=== PATIENT | male | born 1955 | race Two or more races ===

== ENCOUNTER 2017-12-14 14:20 | Emergency (ER) | payer SELFPAY ==
--- NOTE | 2017-12-14 14:37 | EDM.PDOC ---
ED HPI GENERAL MEDICAL PROBLEM - General Chief Complaint: Abdominal Pain Stated Complaint: ABDOMINAL PAIN FROM HERNIA Time Seen by Provider: 12/14/17 14:23 Source of Information: Reports: Patient History Limitations: Reports: No Limitations - History of Present Illness INITIAL COMMENTS - FREE TEXT/NARRATIVE: HISTORY AND PHYSICAL: History of present illness: Patient is a 62-year-old male who presents to the emergency room today with complaints of abdominal pain which he contributes to a hernia. He states over the past 3 years he has noted an umbilical hernia which she normally can reduce himself. Over the past 1-2 days he has had abdominal pain to the umbilicus and is not able to reduce the hernia himself. He states that he has not seen a medical provider for this issue, nor has had any imaging done of this. He denies any fever, chills, chest pain, shortness of breath or cough. Denies any nausea, vomiting, diarrhea, constipation or dysuria. Denies any testicular swelling, erythema, or pain. *Patient is Tristanian speaking. I did offer [employer] translation services, he declines. He has family at bedside, which he prefers to translate for him. Review of systems: As per history of present illness and below otherwise all systems reviewed and negative. Past medical history: As per history of present illness and as reviewed below otherwise noncontributory. Surgical history: As per history of present illness and as reviewed below otherwise noncontributory. Social history: No reported history of drug or alcohol abuse. Family history: As per history of present illness and as reviewed below otherwise noncontributory. Physical exam: General: Well-developed and well-nourished 62-year-old male. Alert and oriented. Nontoxic appearing and in no acute distress. HEENT: Atraumatic, normocephalic, pupils equal and reactive bilaterally, negative for conjunctival pallor or scleral icterus, mucous membranes moist, throat clear, neck supple, nontender, trachea midline. No drooling or trismus noted. No meningeal signs Lungs: Clear to auscultation, breath sounds equal bilaterally, chest nontender. Heart: S1S2, regular rate and rhythm without overt murmur Abdomen: Soft, nondistended, 2 cm umbilical hernia noted. Negative for masses or hepatosplenomegaly. Negative for costovertebral tenderness. Pelvis: Stable nontender. Genitourinary: Deferred. Rectal: Deferred. Skin: Intact, warm, dry. No lesions or rashes noted. Extremities: Atraumatic, negative for cords or calf pain. Neurovascular unremarkable. Neuro: Awake, alert, oriented. Cranial nerves II through XII unremarkable. Cerebellum unremarkable. Motor and sensory unremarkable throughout. Exam nonfocal. Notes: Unable to reduce the umbilical hernia. The skin is pink and normal skin temperature. Area is tender with deep palpation. Denies any changes to bowel habits. He is agreeable to labs and CT at this time. Patient's CT shows a fat-containing umbilical hernia with stranding in the herniated fat, suggestive of regional inflammation and vascular congestion which could represent partial incarceration. Large hiatal hernia noted. Patient was able to reduce the hernia himself. His abdomen is nontender. Skin is pink, warm, dry. I did consult with Dr. Arita this patient. She requests that the patient follow up with her later this week or early next week for further evaluation. Care measures were reviewed and discussed. Signs and symptoms that would prompt him to return to the emergency room were reviewed and discussed. Patient and family member voice understanding and are agreeable to plan of care. Denies any further questions or concerns at this time. Diagnostics: CBC, CMP, CT abdomen and pelvis Therapeutics: Toradol Prescription: None Impression: Umbilical hernia, reducible Plan: 1. Avoid any strenuous activity which would cause the hernia to protrude. If you are unable to reduce the hernia yourself please return to the emergency room. 2. Please follow-up with the general surgeon next week. Your hernia does need to be repaired. 3. Tylenol and/or ibuprofen as needed for pain management. 4. Return to the ED as needed and as discussed. Definitive disposition and diagnosis as appropriate pending reevaluation and review of above. Onset: Today Duration: Day(s): Location: Reports: Abdomen hernia on umbilicas Pain Score (Numeric/FACES): 8 - Related Data Allergies Allergy/AdvReac Type Severity Reaction Status Date / Time No Known Allergies Allergy Verified 12/14/17 14:51 Home Meds: Home Meds . [No Known Home Meds] 12/14/17 [History] ED ROS GENERAL - Review of Systems Review Of Systems: ROS reveals no pertinent complaints other than HPI. ED EXAM, GI/ABD - Physical Exam Exam: See Below (See dictation) Course - Vital Signs Last Recorded V/S: Last Vital Signs Temp 97.9 F 12/14/17 14:52 Pulse 92 12/14/17 14:52 Resp 20 12/14/17 14:52 BP 118/73 12/14/17 14:52 Pulse Ox 94 L 12/14/17 14:52 - Orders/Labs/Meds Orders: Active Orders 24 hr Category Date Time Status Abdomen Pelvis w Cont [CT] Stat Exams 12/14/17 14:44 Taken Labs: Laboratory Tests 12/14/17 12/14/17 Range/Units 14:51 14:51 WBC 4.93 (4.0-11.0) K/uL RBC 4.71 (4.50-5.90) M/uL Hgb 10.8 L (13.0-17.0) g/dL Hct 34.0 L (38.0-50.0) % MCV 72.2 L (80.0-98.0) fL MCH 22.9 L (27.0-32.0) pg MCHC 31.8 (31.0-37.0) g/dL RDW Std Deviation 41.4 (28.0-62.0) fl RDW Coeff of Annie 16 H (11.0-15.0) % Plt Count 228 (150-400) K/uL MPV 10.60 (7.40-12.00) fL Neut % (Auto) 64.8 (48.0-80.0) % Lymph % (Auto) 23.5 (16.0-40.0) % Roane % (Auto) 9.9 (0.0-15.0) % Eos % (Auto) 1.6 (0.0-7.0) % Baso % (Auto) 0.2 (0.0-1.5) % Neut # (Auto) 3.2 (1.4-5.7) K/uL Lymph # (Auto) 1.2 (0.6-2.4) K/uL Roane # (Auto) 0.5 (0.0-0.8) K/uL Eos # (Auto) 0.1 (0.0-0.7) K/uL Baso # (Auto) 0.0 (0.0-0.1) K/uL Nucleated RBC % 0.0 /100WBC Nucleated RBCs # 0 K/uL Sodium 145 (136-148) mmol/L Potassium 3.4 L (3.5-5.1) mmol/L Chloride 110 H (98-107) mmol/L Carbon Dioxide 27.2 (21.0-32.0) mmol/L BUN 21 H (7.0-18.0) mg/dL Creatinine 1.0 (0.8-1.3) mg/dL Est Cr Clr Drug Dosing 65.67 mL/min Estimated GFR (MDRD) > 60.0 ml/min Glucose 126 H (74-106) mg/dL Calcium 8.5 (8.5-10.1) mg/dL Total Bilirubin 0.5 (0.2-1.0) mg/dL AST 20 (15-37) IU/L ALT 26 (14-63) IU/L Alkaline Phosphatase 58 (46-116) U/L Total Protein 6.8 (6.4-8.2) g/dL Albumin 3.3 L (3.4-5.0) g/dL Globulin 3.5 (2.0-3.5) g/dL Albumin/Globulin Ratio 0.9 L (1.3-2.8) Meds: Medications Discontinued Medications Generic Name Dose Route Start Last Admin Trade Name Freq PRN Reason Stop Dose Admin Sodium Chloride 1,000 mls @ 999 mls/hr 12/14/17 15:52 12/14/17 15:56 Normal Saline IV 12/14/17 16:52 999 mls/hr NOW STA Administration Iopamidol 95 ml 12/14/17 16:17 12/14/17 16:40 Isovue Multipack-370 (76%) IVPUSH 12/14/17 16:18 95 ml ONETIME ONE Administration Ketorolac Tromethamine 30 mg 12/14/17 14:47 12/14/17 14:58 Toradol IVPUSH 12/14/17 14:48 30 mg ONETIME ONE Administration Departure - Departure Time of Disposition: 17:04 Disposition: Home, Self-Care 01 Clinical Impression: Umbilical hernia Qualifiers: Obstruction and gangrene presence: without obstruction or gangrene Qualified Code(s): K42.9 - Umbilical hernia without obstruction or gangrene - Discharge Information Instructions: Hernia, Adult, [id number] Referrals: PCP,None [Primary Care Provider] - Forms: ED Department Discharge Additional Instructions: The following information is given to patients seen in the emergency department who are being discharged to home. This information is to outline your options for follow-up care. We provide all patients seen in our emergency department with a follow-up referral. The need for follow-up, as well as the timing and circumstances, are variable depending upon the specifics of your emergency department visit. If you don't have a primary care physician on staff, we will provide you with a referral. We always advise you to contact your personal physician following an emergency department visit to inform them of the circumstance of the visit and for follow-up with them and/or the need for any referrals to a consulting specialist. The emergency department will also refer you to a specialist when appropriate. This referral assures that you have the opportunity for follow-up care with a specialist. All of these measure are taken in an effort to provide you with optimal care, which includes your follow-up. Under all circumstances we always encourage you to contact your private physician who remains a resource for coordinating your care. When calling for follow-up care, please make the office aware that this follow-up is from your recent emergency room visit. If for any reason you are refused follow-up, please contact the [facility] Emergency Department at and asked to speak to the emergency department charge nurse. [facility] Specialty Care - General Surgery (Dr Arita) Professional [address], [address] [place] [address] 1. Avoid any strenuous activity which would cause the hernia to protrude. If you are unable to reduce the hernia yourself please return to the emergency room. 2. Please follow-up with the general surgeon, Dr Arita, next week. Call to schedule this appointment. 3. Tylenol and/or ibuprofen as needed for pain management. 4. Return to the ED as needed and as discussed. - My Orders Last 24 Hours: My Active Orders 12/14/17 14:44 Abdomen Pelvis w Cont [CT] Stat - Assessment/Plan Last 24 Hours: My Active Orders 12/14/17 14:44 Abdomen Pelvis w Cont [CT] Stat
[2017-12-14] MEDS ORDERED: Ketorolac 30 MG/ML SDV IVPUSH ONE (14:47)
[2017-12-14 15:47] LABS: CHLORIDE,CL 110 mmol/L (98-107); SODIUM,NA 145 mmol/L (136-148)
[2017-12-14] MEDS ORDERED: Sodium Chloride 0.9% 1,000 ML IV STA (15:52)
[2017-12-14] MEDS ORDERED: Iopamidol 755 MG/ML 200 ML Multipack Bottle IVPUSH ONE (16:17)
--- NOTE | 2017-12-15 08:54 | CT ---
EXAM DATE: 12/14/17 PATIENT'S AGE: 62 Patient: GENARO BOONE Facility: [place], [place] Site . Site : 1955 Study: CT Abdomen/Pelvis [id number]/10/2018 4:40:20 PM Ordering Physician: Doctor Menezes Final Report: INDICATION: Abdominal pain. Umbilical hernia. TECHNIQUE: CT abdomen and pelvis acquired with IV contrast. COMPARISON: None available FINDINGS: Lower chest: A 4 millimeter right middle lobe nodule on image 5. A large hiatal hernia. Liver: Unremarkable. Spleen: Calcified splenic granulomas. Pancreas: Unremarkable. Gallbladder and bile ducts: Unremarkable. Adrenal glands: Unremarkable. Kidneys: No hydronephrosis. Bilateral renal cysts, measuring up to 2 cm in the left renal upper pole. GI tract: No bowel obstruction. Fluid-filled nondilated lower abdominal and pelvic small bowel segments, nonspecific. No evidence of appendicitis. Sigmoid diverticulosis without diverticulitis. Vascular structures: Atherosclerotic changes. Lymph nodes: No abnormally enlarged lymph nodes. Scattered subcentimeter mesenteric lymph nodes, presumably reactive. Miscellaneous: No free fluid or free air. A small to moderate fat containing umbilical hernia with stranding in the herniated fat and underlying omental fat , suggestive of regional inflammation and/ or vascular congestion. Pelvic Organs: An enlarged prostate, mildly protruding into the bladder base. Bones: Scattered small sclerotic foci in several vertebral bodies, nonspecific. IMPRESSION: A fat containing umbilical hernia with stranding in the herniated fat and underlying omental fat suggestive of regional inflammation and/or vascular congestion, which could represent partial incarceration. No bowel involvement. No evidence of appendicitis, diverticulitis or bowel obstruction. Fluid-filled small bowel segments are nonspecific. Correlate clinically to exclude mild enteritis. A large hiatal hernia. An enlarged prostate, mildly protruding into the bladder. A 4 millimeter pulmonary nodule. If there are risk factors, a 12 month followup can be considered. Dictated by Sahil Laurent MD @ 12/14/2017 4:54:25 PM Please note that all CT scans at this facility use dose modulation, iterative reconstruction, and/or weight-based dosing when appropriate to reduce radiation dose to as low as reasonably achievable. Dictated by: Sahil Laurent MD @ 12/14/2017 16:54:58 (Electronic Signature) Report Signed by Proxy. [facility]
== END 2017-12-14 17:26 | disposition home or self-care (01) ==
LOC: MW.ED 14:20
DX: K42.9 Umbilical hernia without obstruction or gangrene (principal)
CPT/HCPCS: 36415; 74177; 80053; 85025; 96361; 96374; 99284; J1885; J7040; Q9967; 99283